=== PATIENT | male | born 1960 | race Caucasian/White ===

== ENCOUNTER 2020-11-26 01:13 | Emergency (ER) | payer OTHER ==
--- NOTE | 2020-11-26 02:10 | ED Physician Documentation ---
History of Present Illness - Stated complaint Stated Complaint: HBP - Chief complaint Chief Complaint: Cardiac - History obtained from History obtained from: Patient - Additonal information Additional information: 60-year-old man with past medical history of high blood pressure on lisinopril and hydrochlorothiazide presents with home blood pressure of 177/104 with associated anxiety. Patient states that he lost his daughter to drowning in September of this year and has been experiencing grief related to this. The patient is in counseling but has had only 1 session and feels like it is not helping. Denies SI/HI/AVH. Review of Systems Ten Systems: 10 systems reviewed and negative Constitutional: denies: Fever Eyes: denies: Decreased vision Cardiac: denies: Chest pain / pressure Respiratory: denies: Dyspnea GI: denies: Nausea Neurologic: denies: Headache Psychiatric: reports: Depressed, Anxiety PD PAST MEDICAL HISTORY - Past Medical History Past Medical History: Yes Cardiovascular: Hypertension, High cholesterol Respiratory: None Neuro: None Endocrine/Autoimmune: None GI: None : None HEENT: None Psych: None Musculoskeletal: Osteoarthritis Derm: None - Past Surgical History Past Surgical History: Yes Ortho: Spine surgery - Present Medications Home Medications: Ambulatory Orders Medication Instructions Recorded Confirmed Celecoxib [CeleBREX] 100 mg PO BID 11/26/20 11/26/20 Gabapentin [Neurontin] 100 mg PO PRN PRN 11/26/20 11/26/20 Lisinopril [Zestril] 10 mg PO DAILY 11/26/20 11/26/20 Trazodone HCl 100 mg PO DAILY 11/26/20 11/26/20 hydroCHLOROthiazide 50 mg PO DAILY 11/26/20 11/26/20 [Hydrochlorothiazide] - Social History Does the pt smoke?: No Smoking Status: Never smoker Does the pt have substance abuse?: No - Immunizations Immunizations are current?: No - POLST Patient has POLST: No PD ED PE NORMAL - Vitals Vital signs reviewed: Yes - General General: Alert and oriented X 3, No acute distress, Well developed/nourished - HEENT HEENT: Atraumatic, PERRL, EOMI, Moist mucous membranes - Neck Neck: Supple, no meningeal sign - Cardiac Cardiac: RRR - Respiratory Respiratory: No respiratory distress, Clear bilaterally - Abdomen Abdomen: Non tender, Non distended - Derm Derm: Normal color - Extremities Extremities: No deformity - Neuro Neuro: Alert and oriented X 3 - Psych Psych: Normal mood, Normal affect, Other (sad appearing) Results - Vitals Vitals: Vital Signs - 24 hr 11/26/20 11/26/20 11/26/20 01:19 01:32 02:19 Temperature 36.4 C L Heart Rate 78 76 62 Respiratory 18 16 Rate Blood Pressure 148/78 H 138/75 H 123/70 O2 Saturation 95 96 96 Oxygen O2 Source Room air PD MEDICAL DECISION MAKING - ED course ED course: 60-year-old man presents with high blood pressure reading at home, improved in the emergency department. Also with symptoms of mourning after his daughter two months prior. Counseling provided and went over resources for telehealth therapy. Strict return precautions discussed. Departure - Departure Disposition: Home, Self Care Clinical Impression: Depression, Anxiety Condition: Stable Instructions: ED Stress React Comments: You are seen in the emergency department for evaluation after having a high blood pressure reading at home. Your blood pressure In the emergency department is 138/75, which is a good range. If you are interested in alternative therapy, the [facility] has good reviews and can be very affordable. You can call to set up an account and ask for the first month free. They have a sliding scale pay plan usually ranging from $40-120/week. There are also lots of other telepsychology resources online available that may be right for you. Please contact your insurance provider or primary doctor for recommendations. Return to the emergency department if you have active thoughts of suicide or feel unsafe in any way. Discharge Date/Time: 11/26/20 02:21
[2020-11-26 02:21] VITALS: BP 123/70
== END 2020-11-26 02:21 | disposition home or self-care (01) ==
LOC: ED 01:13
DX: F41.9 Anxiety disorder, unspecified (principal); F32.9 Major depressive disorder, single episode, unspecified; I10 Essential (primary) hypertension
CPT/HCPCS: 99281; 99284